=== PATIENT | female | born 1960 | race Caucasian/White ===

== ENCOUNTER → 2017-12-11 10:38 | Outpatient (CLI) | payer OTHER, SELFPAY ==
--- NOTE | 2017-12-11 10:43 | XR_ITS ---
XR ankle LT min 3V HISTORY: Pain and swelling ITS.REASON: PAIN AND EDEMA ORDERING PHYSICIAN: Laura Álvarez PATIENT AGE: 57 years FINDINGS: No fracture or dislocation. No lytic or blastic change. There is normal mineralization.. The joint spaces are well-preserved. No significant degenerative/arthritic changes. No erosive changes evident. IMPRESSION: Negative ankle, no acute finding
== END ==
PROVIDERS: PCP Emergency Medicine; Visit Provider Nurse Practitioner Family
DX: M25.572 Pain in left ankle and joints of left foot (principal); M25.472 Effusion, left ankle
CPT/HCPCS: 73610

== ENCOUNTER → 2018-01-16 10:51 | Outpatient (CLI) | payer OTHER, SELFPAY ==
[2018-01-16 11:34] LABS: Basophils % 1.1 % (0.1-2.0); Eosinophils # 0.1 K/mm3 (0.0-0.4); Eosinophils % 2.8 % (0.1-12.0); Hematocrit 37.8 % (37.0-47.0); Hemoglobin 10.9 g/dL (12.2-16.2); Lymphocytes # 1.4 K/mm3 (0.7-4.5); Lymphocytes % 38.4 K/mm3 (10-50); Mean Corpuscular HGB Conc 28.8 g/dL (31.8-35.4); Mean Corpuscular Hemoglobin 23.4 pg (27.0-31.2); Mean Corpuscular Volume 81.3 fl (81-99); Mean Platelet Volume 7.6 fl (7.4-10.4); Monocytes # 0.3 K/mm3 (0.1-1.0); Monocytes % 7.9 % (1.7-9.3); Neutrophils # 1.8 K/mm3 (1.8-7.8); Neutrophils % 49.8 % (37.0-80.0); Platelet Count 339 K/mm3 (142-424); Red Blood Count 4.65 M/mm3 (4.20-5.40); Red Cell Distribution Width 13.4 % (11.5-17.5); White Blood Count 3.6 K/mm3 (4.8-10.8)
[2018-01-16 12:37] LABS: Alanine Aminotransferase 28 U/L (12-78); Albumin Level 3.8 gm/dL (3.4-5.0); Albumin/Globulin Ratio 1.2 (1.1-1.8); Alkaline Phosphatase 99 U/L (46-116); Anion Gap 14.4 mEq/L (5-15); Aspartate Amino Transferase 23 U/L (15-37); Bilirubin,Total 0.4 mg/dL (0.2-1.0); Blood Urea Nitrogen 9 mg/dL (7-18); Calcium 9.1 mg/dL (8.5-10.1); Carbon Dioxide 28 mmol/L (21.0-32.0); Chloride 105 mmol/L (98-107); Estimated Glomerular Filt Rate 85 ml/min (>60); GFR (African American) 103 ML/MIN (>60); Globulin 3.1 gm/dl (1.3-3.2); Glucose 85 mg/dL (74-106); Potassium 4.4 mmoL/L (3.5-5.1); Sodium 143 mmol/L (136-145); Total Protein,Serum 6.9 gm/dL (6.4-8.2)
== END ==
PROVIDERS: Visit Provider Surgery
DX: Z01.818 Encounter for other preprocedural examination (principal); K83.8 Other specified diseases of biliary tract; K82.4 Cholesterolosis of gallbladder
CPT/HCPCS: 36415; 80053; 85025; 93005

== ENCOUNTER → 2018-02-22 09:13 | Outpatient (POV) | payer OTHER, SELFPAY | PROVIDERS: Visit Provider Dermatology | DX: Z00.00 Encounter for general adult medical examination without abnormal findings (principal) ==

== ENCOUNTER → 2018-04-04 10:03 | Outpatient (CLI) | payer OTHER, SELFPAY ==
[2018-04-04 10:41] LABS: Basophils % 0.6 % (0.1-2.0); Eosinophils # 0.1 K/mm3 (0.0-0.4); Eosinophils % 3.2 % (0.1-12.0); Hematocrit 37.1 % (37.0-47.0); Hemoglobin 11.1 g/dL (12.2-16.2); Lymphocytes # 1.5 K/mm3 (0.7-4.5); Lymphocytes % 34.7 K/mm3 (10-50); Mean Corpuscular Hemoglobin 23.6 pg (27.0-31.2); Mean Corpuscular Volume 78.7 fl (81-99); Mean Platelet Volume 8.2 fl (7.4-10.4); Monocytes # 0.3 K/mm3 (0.1-1.0); Monocytes % 7.9 % (1.7-9.3); Neutrophils # 2.3 K/mm3 (1.8-7.8); Neutrophils % 53.6 % (37.0-80.0); Platelet Count 335 K/mm3 (142-424); Red Blood Count 4.72 M/mm3 (4.20-5.40); Red Cell Distribution Width 16.6 % (11.5-17.5); White Blood Count 4.3 K/mm3 (4.8-10.8)
[2018-04-06 18:09] LABS: Gastrin 67 pg/mL (0-115)
== END ==
PROVIDERS: Visit Provider Surgery
DX: K21.9 Gastro-esophageal reflux disease without esophagitis (principal)
CPT/HCPCS: 36415; 82941; 85025

== ENCOUNTER → 2018-06-04 08:47 | Outpatient (POV) | payer OTHER, SELFPAY | PROVIDERS: Visit Provider Nurse Practitioner Acute Care | DX: Z00.00 Encounter for general adult medical examination without abnormal findings (principal) ==

== ENCOUNTER → 2019-05-22 08:16 | Outpatient (CLI) | payer SELFPAY ==
--- NOTE | 2019-05-22 08:17 | CT_ITS ---
PROCEDURE: CT HEART W CALCIUM SCORE Patient Age:59Y CLINICAL HISTORY: Cardiac risk factors family history. Cholesterol elevation COMPARISON: No exams were available for comparison TECHNIQUE: Limited axial images obtained through the heart for the purposes of calcium scoring. All CT scans at the facility use one or more dose reduction, viz: automated exposure control, ma/kV adjustment per patient size (including targeted exams where dose is matched to indication, i.e. head), or iterative reconstruction technique. FINDINGS: Total calcium score = 0 Very low cardiovascular disease CVD risk with such On visual inspection artery only note tiny atherosclerotic calcification at the aorta just above/superior the right coronary origin but the aorta root is normal caliber. Minimal calcified hilar nodes on right amador reflect minimal old granulomatous disease. IMPRESSION: Total calcium score = 0 Very low cardiovascular disease CVD risk with such Dictated by: Barber Rudolph MD 05/25/2019 23:30 Electronically signed by Barber Rudolph MD in [facility] 05/25/2019 23:30
== END ==
PROVIDERS: PCP Emergency Medicine; Visit Provider Internal Medicine Cardiovascular Disease
DX: Z13.6 Encounter for screening for cardiovascular disorders (principal); R07.9 Chest pain, unspecified
CPT/HCPCS: 75571

== ENCOUNTER → 2019-10-16 13:17 | Outpatient (CLI) | payer OTHER, SELFPAY ==
--- NOTE | 2019-10-16 13:21 | XR_ITS ---
PROCEDURE: XR HIP RT 2-3V W/PELVIS CLINICAL INDICATION: PIRFORMIS SYNDROME Right hip pain COMPARISON: No exams were available for comparison FINDINGS: There are minimal osteoarthritic changes of the right hip with slight decrease in the joint space and minimal spurring along the inferior aspect of the femoral head. No fracture or dislocation. No lytic or blastic change. IMPRESSION: Minimal osteoarthritic change of the right hip Dictated by: Patrick Carney MD 10/16/2019 15:52 Electronically signed by Patrick Carney MD in [facility] 10/16/2019 15:52
--- NOTE | 2019-10-16 13:21 | XR_ITS ---
PROCEDURE: XR LUMBAR SPINE MIN 4V CLINICAL INDICATION: PIRFORMIS SYNDROME Right-sided low back pain with sciatica, right hip pain COMPARISON: No exams were available for comparison FINDINGS: Normal alignment. No fracture or dislocation. There is mild degenerative disc disease at L3-L4 L4-5 and L5-S1. Mild facet arthritic changes are present at L4-5. The SI joints have an unremarkable appearance. IMPRESSION: Mild degenerative changes as described above Dictated by: Patrick Carney MD 10/16/2019 15:51 Electronically signed by Patrick Carney MD in [facility] 10/16/2019 15:51
== END ==
PROVIDERS: PCP Family Medicine; Visit Provider Physician Assistant
DX: G57.01 Lesion of sciatic nerve, right lower limb (principal)
CPT/HCPCS: 72110; 73502

== ENCOUNTER → 2020-01-24 10:30 | Outpatient (CLI) | payer OTHER, SELFPAY ==
[2020-01-24 14:12] LABS: Coronavirus 19 IgG Antibody Negative (Negative); Coronavirus 19 IgM Antibody Negative (Negative)
== END ==
PROVIDERS: Visit Provider Internal Medicine Adolescent Medicine
DX: Z03.818 Encounter for observation for suspected exposure to other biological agents ruled out (principal)
CPT/HCPCS: 36415; 86328

== ENCOUNTER → 2020-03-10 10:03 | Outpatient (POV) | payer OTHER, SELFPAY | PROVIDERS: PCP Family Medicine; Visit Provider Dermatology | DX: Z00.00 Encounter for general adult medical examination without abnormal findings (principal) ==

== ENCOUNTER → 2021-02-10 11:34 | Outpatient (CLI) | payer OTHER, SELFPAY ==
--- NOTE | 2021-02-10 11:42 | XR_ITS ---
PROCEDURE INFORMATION: Exam: XR Sacrum and Coccyx, 2 or More Views Exam date and time: 02/10/2021 11:42 AM Age: 61 years old Clinical indication: Pain in coccyx area; Additional info: Coccygeal pain TECHNIQUE: Imaging protocol: XR of the sacrum and coccyx, 2 or more views. COMPARISON: CR XR HIP RT 2-3V W/PELVIS 10/16/2019 1:28 PM FINDINGS: Bones/joints: Mild degenerative spurring of the bilateral SI joints. No SI joint erosion or ankylosis. Ldyu-xb-ojekbbbs pubic symphysis degenerative change. Bilateral coxa profunda incidentally noted. Mild lower lumbar facet osteoarthropathy. Soft tissues: Pelvic phleboliths. IMPRESSION: Mild degenerative change of the bilateral SI joints. No evidence of sacroiliitis.
== END ==
PROVIDERS: PCP Family Medicine; Visit Provider Physician Assistant
DX: M53.3 Sacrococcygeal disorders, not elsewhere classified (principal)
CPT/HCPCS: 72220

== ENCOUNTER → 2021-02-22 16:28 | Outpatient (CLI) | payer OTHER, SELFPAY ==
--- NOTE | 2021-02-22 16:29 | MR_ITS ---
PROCEDURE INFORMATION: Exam: MR Lumbar Spine Without Contrast Exam date and time: 02/22/2021 4:29 PM Age: 61 years old Clinical indication: Pain; Patient HX: Right sided sciatica, pressure in rectum on coccyx when sitting or bearing down. ; Additional info: Coccydynia TECHNIQUE: Imaging protocol: Multiplanar magnetic resonance images of the lumbar spine without intravenous contrast. COMPARISON: CR XR LUMBAR SPINE MIN 4V 10/16/2019 1:28 PM FINDINGS: Vertebrae: There is a normal count of 5 iyw-jra-dzsyuup lumbar type vertebrae, as seen on previous x-rays of 10/16/2019. There is mild levo scoliotic curvature of the upper lumbar spine, chronic compared with the prior exam. No acute fracture or listhesis. Marrow signal is within normal limits. No lytic lesion or metastatic pattern. Spinal cord: The conus tip is at the L1 level, and appears normal in signal and contour. No cord compression. L1-L2: No significant disc disease. No significant spinal canal stenosis. No neural foraminal stenosis. L2-L3: No significant disc disease. No significant spinal canal stenosis. No neural foraminal stenosis. L3-L4: Minimal anterior spondylosis, and slight lateral/intraforaminal disc bulging. No significant spinal canal stenosis. No neural foraminal stenosis. L4-L5: Minimal anterior spondylosis. Shallow posterolateral disc bulges greater toward the left. Mild bilateral facet arthritis and ligamentum flavum hypertrophy. No significant spinal canal stenosis. No neural foraminal stenosis. L5-S1: Moderate degenerative signal loss in the disc. There is small posterior disc protrusion slightly greater toward the right, with edematous annular tear visible in hernia; axial series 10, image 25, sagittal series 4 images 6-7. The protrusion minimally indents the thecal sac. Facets and ligamentum flavum are unremarkable. There is no significant spinal or foraminal stenosis, no nerve compression. Soft tissues: Subcutaneous soft tissue edema in the posterior lower back, a common nonspecific finding.There are no soft tissue masses or fluid collections. Kidneys and ureters: Prominent bilateral extrarenal pelves noted in the kidneys. No acute findings as visualized. Other findings: There is no aortic aneurysm. IMPRESSION: 1. No acute fracture, listhesis or metastatic pattern. 2. A shallow, edematous posterior disc protrusion at L5-S1 minimally indenting the thecal sac. There is no evidence of significant spinal stenosis or nerve compression. 3. Minimal degenerative changes at the other levels as above, with no significant spinal or foraminal stenoses, or nerve compression at the other levels. 4. Additional nonemergency and chronic findings as above.
--- NOTE | 2021-02-22 16:29 | MR_ITS ---
PROCEDURE INFORMATION: Exam: MR Pelvis Without Contrast, Sacral plexus Exam date and time: 02/22/2021 4:29 PM Age: 61 years old Clinical indication: Pain; Other: Coccyx; Patient HX: Pressure in rectum when sitting or bearing down, right sided sciatica; Additional info: Coccydynia TECHNIQUE: Imaging protocol: Magnetic resonance images of the pelvis without intravenous contrast. Exam focused on the sacral plexus. COMPARISON: XR SACRUM COCCYX MIN 2V 02/10/2021 12:02 PM FINDINGS: Nerves: Sacral plexus is unremarkable. Bones/joints: No acute findings. No acute fracture. No marrow edema. No lytic lesions. There is chronic appearing ankylosis of S5 and the 1st coccygeal segment. The 2nd through 4th coccygeal segments are fused into a single ossicle. There is fatty marrow intensity within the coccyx, no marrow edema, and no significant malalignment. Mild bilateral sacroiliitis, with minimal periarticular spurs as seen on previous x-rays. There is slight left sacral and iliac marrow edema abutting the left SI joint seen on STIR series 3, images 9 -10. Soft tissues: There are no soft tissue masses or organized fluid collections. There is slight soft tissue edema posterior/superficial to the distal sacrum and coccyx, see sagittal T2 series 4 images 18-19, but this is milder than the soft tissue edema seen in the posterior lower back overlying the lumbar spine and upper sacrum, and likely of no clinical significance. No pre-sacral or pre-coccygeal edema. IMPRESSION: 1. Unremarkable sacral plexus. 2. No sacral-coccygeal fracture, acute inflammation or malalignment. 3. Mild bilateral sacroiliitis, greater on the left. 4. Additional nonemergency and chronic findings as above.
== END ==
PROVIDERS: PCP Family Medicine; Visit Provider Physician Assistant
DX: M53.3 Sacrococcygeal disorders, not elsewhere classified (principal)
CPT/HCPCS: 72148; 72195; 76376

== ENCOUNTER → 2021-03-16 11:23 | Outpatient (POV) | payer OTHER, SELFPAY | PROVIDERS: Visit Provider Dermatology | DX: Z00.00 Encounter for general adult medical examination without abnormal findings (principal) ==

== ENCOUNTER 2021-03-31 15:00 | Outpatient (RCR) | payer OTHER, SELFPAY ==
--- NOTE | 2021-03-24 16:07 | HMH.PTOPEV ---
PT Outpatient Evaluation Rehab PT Outpatient Evaluation Start: 03/24/21 15:50 Freq: Status: Active Protocol: Document 03/24/21 15:51 PHILKELSI (Rec: 03/24/21 16:07 HILARY [id number]) Electronically Signed By Pasquale Bermudez, PT 03/24/21 15:51 Outpatient Therapy Subjective History Subjective History This is the initial Physical Therapy evaluation for Laya Coronel. Pt is a 61 y/o female referred to PT for c/o R side LBP, RLE paresthesia and R sacral/coccygeal pain. Pt reports pain began ~ 3 or more months ago w/ insidious onset. Pt reports she was seeing a chiropractor for several weeks with relief of back pain but no relief of sacral pain. Pt reports that if she sits her paresthesia increases and if she shifts she will get sharp tail bone pain Chief Complaint Pain Symptom Type Sharp,Burning,Numbness Symptoms Relieved By Rest/Positioning,OTC Meds Symptoms Aggravated By Sitting,Twisting Prior Functional Limitations None Current Functional Limitations Lifting,Housework,Desk Work/ Reading,Sleeping Symptom Description Intermittent Level of pain today (0-10) 0 Pain scale - at its best (0-10) 0 Pain scale - at its worst (0-10) 5 Lumbopelvic Eval Palapation tenderness right thoracic spinal tenderness No lumbar spinal tenderness No paraspinal tenderness No buttock tenderness Yes tenderness over symphysis pubis No Lumbar/Sacral Palpation Findings Tenderness Lumbar/Sacral Palpation Overall Comment TTP along R piriformis Mm and R SIJ ligaments Range of Motion Lumbar Spine ROM Reason Not Measured Within Functional Limits Special Tests Lumbar Spine Screen Positive Forward Bending Test- Standing Negative Right Forward Bending Test- Sitting Negative Right Sciatic Nerve Tension Test Negative Right Unilateral Straight Leg Raise (Lasegue) Negative Right Test Sacroiliac Joint Compression Test Positive Right Sacroiliac Joint Distraction Test Positive Right Outpatient Therapy Assessment Impairments Problems/Impairmments Palpation Tenderness,Impaired Sitting,Impaired Driving, Impaired Household Care, Impaired Recreational
== END 2021-03-31 15:05 | disposition home or self-care (01) ==
LOC: PT 15:00
PROVIDERS: PCP Family Medicine; Visit Provider Physician Assistant
DX: M53.3 Sacrococcygeal disorders, not elsewhere classified (principal)
CPT/HCPCS: 97010; 97110; 97140; 97163

== ENCOUNTER → 2021-04-09 12:55 | Outpatient (POV) | payer OTHER, SELFPAY ==
[2021-04-09 12:59] VITALS: BP 146/79; PULSE 70; RESP 20; O2SAT 97; BMI 26.6
--- NOTE | 2021-04-09 13:44 | HMH.PMCON ---
Assessment and Plan (1) Coccydynia Status: Acute Category: Medical Code(s): M53.3 - Sacrococcygeal disorders, not elsewhere classified (2) Degenerative joint disease (DJD) of lumbar spine Status: Acute Category: Medical Code(s): M47.816 - Spondylosis without myelopathy or radiculopathy, lumbar region - Assessment and plan all Dx Assessment and Plan for all problems:: Patient is to continue with her anti-inflammatories. We will seek approval and plan on a sacrococcygeal joint injection/caudal epidural steroid injection to see if this helps with her pain symptoms. HPI - Data of Consult Patient: new to practice Consult date: 04/09/21 Requesting Physician: Nikhil Fletcher MD Primary Care Provider: Norman De La Paz MD - Consult Narrative Reason for consult: Pain over the tailbone History of present illness: Ms. Coronel is a 61 year old female who presents today with some pain over the coccygeal region. She has had some previous manipulations by chiropractor initially this got better however after her last manipulation it did worsen her pain some. She has also had sciatica type symptoms. Most of her pain seems to be over her tailbone. She does have an MRI of the sacrum and coccyx as well as the lumbar spine which only shows some degenerative changes throughout the lumbar spine with posterior disc protrusion at L5-S1. She does seem to be suffering from coccydynia with minimal radiation of pain. CC: Nikhil Fletcher MD [facility] History I have reviewed the patient's past medical history: Yes Medical History: Reports:: Gastroesophageal Reflux Disease(GERD), Hyperlipidemia Denies:: Cancer, Diabetes Mellitus Type 1, Diabetes Mellitus Type 2, Internal Pacemaker, Lung Disease, MRSA, Seizures *Have you ever received a pneumonia vaccine?: No *Have you received a flu vaccine this season?: Yes Other Medical History: Denies: Blood Transfusion Reaction Other Surgeries: Yes: Cholecystectomy, Colonoscopy, Hysterectomy-Total, Hysterectomy-Partial, Tubal Ligation. No: Pacemaker Amputation: No Fractures: No - *Social History Smoking Status: Never smoker Alcohol Intake: never Substance Use Type: denies use *Occupational Status:: employed Housing: house Household Members: spouse *Travel in the last 8 weeks: None Family Hx:: Bleeding Disorder, Cancer, Coronary Artery Disease, Diabetes, Heart Attack, Hyperlipidemia, Hypertension, Stroke Review of Systems - Review of Systems Review of systems:: pertinent systems reviewed and negative unless documented below Meds Home Medications Medication Instructions Recorded Confirmed Type aspirin 81 mg tablet,delayed 81 mg PO DAILY 12/20/17 04/09/21 History release omeprazole 20 mg capsule,delayed 20 mg PO DAILY #90 cap 08/15/19 04/09/21 Rx release rosuvastatin 5 mg tablet 5 mg PO DAILY #90 tab 08/15/19 04/09/21 Rx Allergies Allergy/AdvReac Type Severity Reaction Status Date / Time Sulfa (Sulfonamide Allergy Mild Nausea Verified 04/09/21 13:10 Antibiotics) sulfamethoxazole Allergy Mild Nausea Verified 04/09/21 13:10 [From Bactrim] trimethoprim [From Bactrim] Allergy Mild Nausea Verified 04/09/21 13:10 Objective Vital signs: Pulse Resp BP Pulse Ox 70 20 146/79 H 97 04/09/21 12:59 04/09/21 12:59 04/09/21 12:59 04/09/21 12:59
== END ==
PROVIDERS: PCP Family Medicine; Visit Provider Anesthesiology
DX: M53.3 Sacrococcygeal disorders, not elsewhere classified (principal); M47.816 Spondylosis without myelopathy or radiculopathy, lumbar region
CPT/HCPCS: 99202; G0463

== ENCOUNTER 2021-04-23 10:36 | Day surgery (SDC) | payer OTHER, SELFPAY ==
[2021-04-23 10:42] VITALS: BP 150/76; PULSE 65; RESP 18; TEMP 36.9; O2SAT 99; BMI 27.9
[2021-04-23 10:57] VITALS: BP 149/81; PULSE 69; RESP 18; O2SAT 98
[2021-04-23 11:03] VITALS: BP 142/91; PULSE 69; RESP 18; O2SAT 100
--- NOTE | 2021-04-23 11:09 | HMH.PMPROC ---
- Procedure Date: 04/23/21 Time: 11:09 Anesthesiologist:: Nikhil Fletcher MD Complications:: None Pre-procedure Diagnosis:: Degenerative disc disease of lumbar spine with lumbar radiculopathy symptoms Post-procedure Diagnosis:: Same Indications for Procedure:: Patient is a pleasant 61-year-old white female who we have been treating for low back pain which is really concentrated over the coccyx. She does also have some sciatica type symptoms. She does have a posterior disc protrusion at L5-S1. Most of her pain is on the right side. Will do lumbar epidural steroid injections at L5-S1 to see if this helps with her pain symptoms. Procedure Details:: Informed consent was obtained and the risk and benefits of the procedure was explained to the patient. The patient was taken to the procedure room. The patient was placed prone on the procedure table. The patient was prepped and draped in sterile fashion. C-arm fluoroscopy was used to view the lumbar spine. Skin and subcutaneous tissues were anesthetized using lidocaine. I placed an 18-gauge epidural needle and advanced into the L5-S1 interspace using fluoroscopic guidance and [id number] to air. After confirmation of needle placement in the epidural space with dye I injected 2 mL of lidocaine 1.5% with Depo-Medrol 80 mg. Patient tolerated the procedure well with no complications. Plan and Disposition:: We will follow-up with her in 2 weeks. Will reevaluate her symptoms at that time.
[2021-04-23 11:15] VITALS: BP 160/72; PULSE 61; RESP 20; O2SAT 99
== END 2021-04-23 11:15 | disposition home or self-care (01) ==
LOC: SC.PAINP 10:36
PROVIDERS: PCP Family Medicine; Visit Provider Anesthesiology
DX: M51.16 Intervertebral disc disorders with radiculopathy, lumbar region (principal); I10 Essential (primary) hypertension; K21.9 Gastro-esophageal reflux disease without esophagitis
CPT/HCPCS: 62323; J1040; Q9966

== ENCOUNTER → 2021-05-14 09:28 | Outpatient (POV) | payer OTHER, SELFPAY ==
[2021-05-14 09:43] VITALS: BP 134/72; PULSE 69; RESP 20; TEMP 36.9; O2SAT 98; BMI 27.9
--- NOTE | 2021-05-14 10:04 | P.CONS_ITS ---
[facility] Pain Management SOAP Note Subjective:: This patient is a pleasant 61-year-old white female who we are treating for low back pain with pain over the coccyx. She is status post L5-S1 lumbar epidural steroid injection. She is 70 to 80% better after her last lumbar epidural steroid injection. She still has some residual pain. However she is much more functional and doing very well. Objective:: Alert and oriented x3 no acute distress. Patient does have an antalgic gait. Motor strength of lower extremities is 5/5. There is no gross sensory deficit. Assessment:: Degenerative disc disease of lumbar spine with lumbar radiculopathy symptoms with bulging disc at L5-S1 Plan:: Patient still has some residual pain. I do believe she would benefit from a repeat lumbar epidural steroid injection under fluoroscopy at L5-S1. We will seek approval and plan on this repeat injection when she gets back from vacation. [facility] History Medical History: Reports:: Gastroesophageal Reflux Disease(GERD), Hyperlipidemia Denies:: Cancer, Diabetes Mellitus Type 1, Diabetes Mellitus Type 2, Internal Pacemaker, Lung Disease, MRSA, Seizures *Have you ever received a pneumonia vaccine?: Yes *Have you received a flu vaccine this season?: Yes Other Medical History: Denies: Blood Transfusion Reaction Other Surgeries: Yes: Cholecystectomy, Colonoscopy, Hysterectomy-Total, Hysterectomy-Partial, Tubal Ligation. No: Pacemaker Amputation: No Fractures: No - *Social History Smoking Status: Never smoker Alcohol Intake: never Substance Use Type: denies use *Occupational Status:: employed Housing: house Household Members: spouse *Travel in the last 8 weeks: None Family Hx:: Bleeding Disorder, Cancer, Coronary Artery Disease, Diabetes, Heart Attack, Hyperlipidemia, Hypertension, Stroke
== END ==
PROVIDERS: PCP Family Medicine; Visit Provider Anesthesiology
DX: M51.16 Intervertebral disc disorders with radiculopathy, lumbar region (principal)
CPT/HCPCS: 99212; G0463

== ENCOUNTER 2021-06-04 11:44 | Day surgery (SDC) | payer OTHER, SELFPAY ==
[2021-06-04 11:52] VITALS: BP 136/59; PULSE 73; RESP 18; TEMP 36.8; O2SAT 98; BMI 27.4
[2021-06-04 12:06] VITALS: BP 137/90; PULSE 79; RESP 18; O2SAT 99
[2021-06-04 12:08] VITALS: BP 149/80; PULSE 75; RESP 18; O2SAT 99
--- NOTE | 2021-06-04 12:15 | HMH.PMPROC ---
- Procedure Date: 06/04/21 Time: 12:15 Anesthesiologist:: Nikhil Fletcher MD Complications:: None Pre-procedure Diagnosis:: Degenerative disc disease of lumbar spine with lumbar radiculopathy symptoms Post-procedure Diagnosis:: Same Indications for Procedure:: This patient is a pleasant 61-year-old white female who we are treating for low back pain with lumbar radiculopathy symptoms. She has increasing pain in her back rating down her legs. She did very well with her last lumbar epidural steroid injection she was 60 to 70% better. We will do repeat lumbar epidural steroid injection today. Procedure Details:: Informed consent was obtained and the risk and benefits of the procedure was explained to the patient. The patient was taken to the procedure room. The patient was placed prone on the procedure table. The patient was prepped and draped in sterile fashion. C-arm fluoroscopy was used to view the lumbar spine. Skin and subcutaneous tissues were anesthetized using lidocaine. I placed an 18-gauge epidural needle and advanced into the L4-L5 interspace using fluoroscopic guidance and [id number] to air. After confirmation of needle placement in the epidural space with dye I injected 2 mL of lidocaine 1.5% with Depo-Medrol 80 mg. Patient tolerated the procedure well with no complications. Plan and Disposition:: We will follow-up with her in 2 weeks. Will reevaluate symptoms at that time.
[2021-06-04 12:20] VITALS: BP 136/59; PULSE 73; RESP 20; O2SAT 98
== END 2021-06-04 12:20 | disposition home or self-care (01) ==
LOC: SC.PAINP 11:44
PROVIDERS: PCP Family Medicine; Visit Provider Anesthesiology
DX: M51.16 Intervertebral disc disorders with radiculopathy, lumbar region (principal); I10 Essential (primary) hypertension; K21.9 Gastro-esophageal reflux disease without esophagitis
CPT/HCPCS: 62323; J1040

== ENCOUNTER 2021-06-15 10:01 | Outpatient (CLI) | payer OTHER, SELFPAY ==
[2021-06-15] VITALS (8 sets, daily range): BP systolic 116–139; BP diastolic 58–77; PULSE 52–64; RESP 16–20; TEMP 36.6; O2SAT 95–99
== END 2021-06-15 13:36 | disposition home or self-care (01) ==
LOC: INF 10:02
PROVIDERS: PCP Family Medicine; Visit Provider Family Medicine
DX: U07.1 COVID-19 (principal); Z23 Encounter for immunization
CPT/HCPCS: 96365

== ENCOUNTER 2021-08-25 12:03 | Day surgery (SDC) | payer OTHER, SELFPAY ==
[2021-08-25 12:15] VITALS: BP 130/67; PULSE 68; RESP 20; O2SAT 99; BMI 27.4
--- NOTE | 2021-08-25 12:24 | HMH.PMPROC ---
- Procedure Date: 08/25/21 Time: 12:25 Anesthesiologist:: Nikhil Fletcher MD Complications:: None Pre-procedure Diagnosis:: Degenerative disc disease of lumbar spine with lumbar radiculopathy symptoms Post-procedure Diagnosis:: Same Indications for Procedure:: This patient is a pleasant 61-year-old white female who we are treating for low back pain with lumbar radiculopathy symptoms. She has done well with previous epidural steroid injections. We will do a repeat lumbar pleural steroid injection under fluoroscopy today as her pain is starting to return. Procedure Details:: Informed consent was obtained and the risk and benefits of the procedure was explained to the patient. The patient was taken to the procedure room. The patient was placed prone on the procedure table. The patient was prepped and draped in sterile fashion. C-arm fluoroscopy was used to view the lumbar spine. Skin and subcutaneous tissues were anesthetized using lidocaine. I placed an 18-gauge epidural needle and advanced into the L4-L5 interspace using fluoroscopic guidance and [id number] to air. After confirmation of needle placement in the epidural space with dye I injected 2 mL of lidocaine 1.5% with Depo-Medrol 80 mg. Patient tolerated the procedure well with no complications. Plan and Disposition:: We will follow-up with her in 2 weeks. Will reevaluate symptoms at that time.
[2021-08-25 12:27] VITALS: BP 146/84; PULSE 77; RESP 18; O2SAT 99
[2021-08-25 12:31] VITALS: PULSE 81; RESP 18; O2SAT 99
[2021-08-25 12:38] VITALS: BP 130/67; PULSE 68; RESP 20; O2SAT 99
== END 2021-08-25 12:39 | disposition home or self-care (01) ==
LOC: SC.PAINP 12:03
PROVIDERS: PCP Family Medicine; Visit Provider Anesthesiology
DX: M51.16 Intervertebral disc disorders with radiculopathy, lumbar region (principal); I10 Essential (primary) hypertension; K21.9 Gastro-esophageal reflux disease without esophagitis; E78.5 Hyperlipidemia, unspecified; Z88.1 Allergy status to other antibiotic agents; Z88.2 Allergy status to sulfonamides
CPT/HCPCS: 62323; J1040; Q9966

== ENCOUNTER 2024-09-10 13:01 | Outpatient (CLI) | payer MEDICARE, SELFPAY ==
--- NOTE | 2024-09-10 13:07 | XR_ITS ---
PROCEDURE INFORMATION: Exam: XR Thoracic Spine Exam date and time: 09/10/2024 1:13 PM Age: 64 years old Clinical indication: Pain in thoracic spine TECHNIQUE: Imaging protocol: Radiologic exam of the thoracic spine. Views: 3 views. COMPARISON: MR LUMBAR SPINE WO CON 02/22/2021 4:39 PM FINDINGS: Bones/joints: Alignment is normal. No visualized fracture. Disc space heights well-maintained. No osteophyte formation. No appreciable degenerative changes. Soft tissues: Unremarkable. IMPRESSION: Unremarkable thoracic spine.
== END 2024-09-10 23:59 | disposition home or self-care (01) ==
LOC: RAD 13:04
PROVIDERS: PCP Family Medicine; Visit Provider Family Medicine
DX: M54.6 Pain in thoracic spine (principal)
CPT/HCPCS: 72072

== ENCOUNTER 2024-12-23 09:23 | Outpatient (CLI) | payer MEDICARE, SELFPAY ==
--- OUTSIDE RECORDS SUMMARY | 2024-12-23 09:26 | XMS_ITS | Data Portability ---
Author Organization [facility] TreviñoS DREXEL CLOSED Address [address] [facility] [address] [place] [address] Assessment Encounter Date Assessment Date Assessment LastModified by Organization Details LastModified Time 02/10/2023 02/10/2023 f/up yearly [email or web address] Not available 12:11:35 02/12/2024 02/12/2024 F/up yearly [email or web address] Not available 12:32:58 Plan of Treatment Reminders Order Date Submit Date Provider Last Modified By Organization Details Last Modified Time Details Appointments DERMATOLO GY VISIT 2024 01:45P M PER QUILES MD Not available Not available Not available Lab None recorded. Referral None recorded. Procedures None recorded. Surgeries None recorded. Imaging None recorded. Medication Orders None recorded. Patient TargetsNo targets recorded. Patient Instructions Encounter Date Encounter Id Patient Instructions Last Modified By Organization Details Last Modified Time 02/10/2023 [id number] Education: We discussed the potential diagnostic options, options for further evaluation and treatments, and the risks and benefits of each. [email or web address] Not available 02/10/2023 07:01:24 02/12/2024 [id number] Education: We discussed the potential diagnostic options, options for further evaluation and treatments, and the risks and benefits of each. [email or web address] Not available 02/08/2024 15:09:44 Reason for Referral None Reported. Results Created Date Observation Date Name Description Value Unit Range Abnormal Flag Note LastModifiedBy Organization Detail LastModifiedTime 02/10/2002/09/2023 MAMMO , diagn ostic , tomos ynthe sis, bilat eral, w/ CAD [facility] [facility] [address] [facility] [place] [address] Maritza kim Name: LAYA kim : [id number] Age: 63 years Patishreya kim Orderi ng Provid er: RAMÓN TOLENTINO EXAM DATE: 2022 EXAM: MG AJ DIAG BARBIE MAMMOG ANJUM, right breast ultras ound INDICA TION: Nodule PROCED URE: Multis lice imagin g of both breast s was perfor med includ ing standa rd views using Hologi c Seleni a Dimens ions tomosy nthesi s equipm ent (3D mammog chinyere) . 2D images were create d from the 3D datase t using C-View softwa re. Images were evalua barak with the assist ance of Comput er Aided Detect ion (CAD) softwa re. Right breast ultras ound was perfor med. COMPAR MARTHA: This is compar ed with prior mammog glynn dated 2021, 2021, 2021, 2020, 2019. Prior ultras ound dated 2021, 2021 FINDIN GS: The breast s are hetero geneou sly dense. This reduce s sensit ivity of mammog chinyere. Scatte red areas of tissue asymme try. The patter n is stable . There is no defini te new mass or suspic ious calcif icatio n cluste r. An ultras ound was then perfor med. There is a hypoec hoic lesion at the 10:00 positi on of the right breast , 4 cm from the nipple . This measur es 10 x 9 x 4 mm. Favor fibroa denoma or compli cated cyst. Previo usly measur ed 8 x 8 x 4 mm. The differ ences in size likely relate to differ ences in measur ing techni que utiliz ed. IMPRES ELEAZAR: BI-RAD S catego ry 3, Probab ly Benign . Recomm end six-mo nth follow -up repeat right breast ultras ound only COMMEN T: Findin gs and recomm endati ons were discus sed with the patien t. Interp reted By: Ritesh Hyde MD Electr onical ly Signed By: Ritesh Hyde MD on 023 10:38 AM [email or web address] [facility] [address] [facility], [place], [address], 02/09/2023 10:49:31 02/10/20 23 02/09/2023 US, brekg t, unila teral [facility] [address] [place] [address] Maritza kim Name: LAYA kim : [id number] Age: 63 years Patishreya t Orderi ng Provid er: RAMÓN TOLENTINO EXAM DATE: 2022 EXAM: MG AJ DIAG BARBIE MAMMOG ANJUM, right breast ultras ound INDICA TION: Nodule PROCED URE: Multis lice imagin g of both breast s was perfor med includ ing standa rd views using Hologi c Seleni a Dimens ions tomosy nthesi s equipm ent (3D mammog chinyere) . 2D images were create d from the 3D datase t using C-View softwa re. Images were evalua barak with the assist ance of Comput er Aided Detect ion (CAD) softwa re. Right breast ultras ound was perfor med. COMPAR MARTHA: This is compar ed with prior mammog glynn dated 2021, 2021, 2021, 2020, 2019. Prior ultras ound dated 2021, 2021 FINDIN GS: The breast s are hetero geneou sly dense. This reduce s sensit ivity of mammog chinyere. Scatte red areas of tissue asymme try. The patter n is stable . There is no defini te new mass or suspic ious calcif icatio n cluste r. An ultras ound was then perfor med. There is a hypoec hoic lesion at the 10:00 positi on of the right breast , 4 cm from the nipple . This measur es 10 x 9 x 4 mm. Favor fibroa denoma or compli cated cyst. Previo usly measur ed 8 x 8 x 4 mm. The differ ences in size likely relate to differ ences in measur ing techni que utiliz ed. IMPRES ELEAZAR: BI-RAD S catego ry 3, Probab ly Benign . Recomm end six-mo nth follow -up repeat right breast ultras ound only COMMEN T: Findin gs and recomm endati ons were discus sed with the maritza kim. Interp reted By: Ritesh Hyde MD Electr onical ly Signed By: Ritesh Hyde MD on 023 10:38 AM [email or web address] [facility] [address] [place], [address], 02/09/2023 10:49:32 08/17/20 23 08/17/2023 US, edgar kim, fany teral [facility] [address] [place] [address] Maddieshreya kim Name: LAYA kim : [id number] Age: 63 years Maritza kim Orderi ng Provid er: RAMÓN TOLENTINO EXAM DATE: 2022 EXAM: US BREAST RT LIMITE D INDICA TION: 18 month follow -up right breast PROCED URE: Right breast ultras ound. COMPAR MARTHA: 023, 2021, 01/27/20 22 FINDIN GS: Follow -up ultras ound was perfor med of the right breast . At 10:00, 4 cm from the nipple there is a stable 10 x 8 x 4 mm hetero genous mass withou t international trade manager al lenin wick. This has been stable for 18 months , probab ly benign . IMPRES ELEAZAR: BI-RAD S catego ry 3, Probab ly Benign . Recomm end right breast ultras ound follow -up in 6 months . Patishreya t will be due for bilate ral diagno stic mammog anjum at that time. COMMEN T: Findin gs and recomm endati ons were discus sed with the patien t. Interp reted By: Kathi Sargent Electr onical ly Signed By: Kathi Sargent on 2022 10:09 AM [email or web address] [facility] [address] [place], [address], 08/17/2023 15:45:56 02/12/20 24 02/12/2024 MAMMO , diagn ostic , tomos ynthe sis, bilat eral, w/ CAD [facility] [facility] [address] [place] [address] Patishreya kim Name: LAYA kim : 958 Age: 64 years Patishreya t Orderi ng Provid er: LOGAN CAMACHO ET EXAM DATE: 2023 EXAM: MG AJ DIAG BARBIE MAMMOG ANJUM, right breast ultras ound INDICA TION: Nodule PROCED URE: Multis lice imagin g of both breast s was perfor med includ ing standa rd views using Hologi c Seleni a Dimens ions tomosy nthesi s equipm ent (3D mammog chinyere) . 2D images were create d from the 3D datase t using C-View softwa re. Images were evalua barak with the assist ance of Comput er Aided Detect ion (CAD) softwa re. Right breast ultras ound was perfor med. COMPAR MARTHA: This is compar ed with prior mammog glynn dated 023, 2021, 2021 . Previo us ultras ound dated 2022, 023, 2021, 2021 FINDIN GS: The breast s are hetero geneou sly dense. This reduce s sensit ivity of mammog chinyere. Vague nodula rity in the latera l portio n of the right breast is again noted and has not change d. Ultras ound of the right breast shows a hypoec hoic nodule at 10:00. This measur es 11 x 7 x 5 mm. 4 cm from nipple . IMPRES ELEAZAR: BI-RAD S catego ry 2, Benign . Lesion questi oned in the right breast is stable for greate r than 2 years. Recomm end follow -up yearly screen ing mammog chinyere on schedu le COMMEN T: Findin gs and recomm endati ons were discus sed with the patien t. Interp reted By: Ritesh Hyde MD Electr onical ly Signed By: Ritesh Hyde MD on 024 2:24 PM [email or web address] [facility] [address] [place] [address], [phone], 02/12/2024 14:37:43 02/12/20 24 02/12/2024 US, breas t, unila teral [facility] [address] [place] [address], [place] [address] Maritza kim Name: LAYA kim : [id number] Age: 64 years Patishreya t Orderi ng Provid er: LOGAN CAMACHO ET EXAM DATE: 2023 EXAM: MG AJ DIAG BARBIE MAMMOG ANJUM, right breast ultras ound INDICA TION: Nodule PROCED URE: Multis lice imagin g of both breast s was perfor med includ ing standa rd views using Hologi c Seleni a Dimens ions tomosy nthesi s equipm ent (3D mammog chinyere) . 2D images were create d from the 3D datase t using C-View softwa re. Images were evalua barak with the assist ance of Comput er Aided Detect ion (CAD) softwa re. Right breast ultras ound was perfor med. COMPAR MARTHA: This is compar ed with prior mammog glynn dated 023, 2021, 2021 . Previo us ultras ound dated 2022, 023, 2021, 2021 FINDIN GS: The breast s are hetero geneou sly dense. This reduce s sensit ivity of mammog chinyere. Vague nodula rity in the latera l portio n of the right breast is again noted and has not change d. Ultras ound of the right breast shows a hypoec hoic nodule at 10:00. This measur es 11 x 7 x 5 mm. 4 cm from nipple . IMPRES ELEAZAR: BI-RAD S catego ry 2, Benign . Lesion questi oned in the right breast is stable for greate r than 2 years. Recomm end follow -up yearly screen ing mammog chinyere on schedu le COMMEN T: Findin gs and recomm endati ons were discus sed with the patishreya renee . Interp reted By: Ritesh Hyde MD Electr onical ly Signed By: Ritesh Hyde MD on 024 2:[address] [place] [address], [phone], 02/12/2024 14:37:44 Result Notes None recorded. Procedures Surgical History Date Name Laterality Status Provider Name and Address Organization Details Recorded Time 02/12/20 Destruction Premalignant Lesion(s) completed [facility], [place] 02/12/2024 12:31:34 02/12/20 Destruction BN Lesions completed [facility] [place] 02/12/2024 12:32:07 02/11/20 Destruction Premalignant Lesion(s) completed Karly Hightower [facility] 02/10/2023 12:20:03 Imaging Results Imaging Date Name Status LastModified by Organiz ation Details LastModified Time 02/09/2023 MAMMO, diagnostic, tomosynthesis, bilateral, w/ CAD completed [email or web address] [address], [address], 02/09/2023 10:49:31 02/09/2023 US, breast, unilateral completed [facility] [address] [place], [address], 02/09/2023 10:49:32 08/17/2023 US, breast, unilateral completed [email or web address] [address], [address], 08/17/2023 15:45:56 02/12/2024 MAMMO, diagnostic, tomosynthesis, bilateral, w/ CAD completed [email or web address] [facility] [address] [place] [address], [phone], 02/12/2024 14:37:43 02/12/2024 US, breast, unilateral completed [email or web address] [facility] [address] [place], [address], 02/12/2024 14:37:44 Procedure Notes None recorded. Medical Equipment None Reported. Allergies Allergen ID Allergen Name Allergen Category Reaction Reaction Severity Criticality Documentation Date Start Date Code Code System Note Provider Name and Address Organization Details Recorded Time 444667 Bactrim medicatio n hives Not available Not available 07/15/20162014 50788 9 RxNorm React ion: HIVES ; Comme nt: Creat ed By: Vianey Toscano eated Date: 07/01 11:19 :16 AM; Not Available [facility] 03:27:51 Medications Name Sig Start Date Stop Date Status Note LastModified by Organization Details LastModified Time triamcino lone acetonide 0.1 % topical cream As Directed 02/10 completed Instruct ions: Apply to the affected area ON LEG twice a day for 2 weeks PRN FLARES;F requency : as direct.; Medicati on Descript ion: triamcin olone topical; Dosage:a s directed ; Route:to pical; refills: 1; Quantity :15 cream Not Available Not Available Not Available aspirin 81 mg tablet Daily active PT NO LONGER TAKING Not Available Not Available Not Available rosuvasta tin 10 mg tablet Take 1 tablet every day by oral route. active Not Available Not Available No t Available Crestor 5 mg tablet 02/10 completed Medicati on Descript ion: rosuvast atin; Route:or al; refills: 0; Quantity :30 tablet Not Available Not Available Not Available omeprazol e active Medicati on Descript ion: omeprazo le; refills: 0 Not Available Not Available Not Available Vitals None Recorded Social History None recorded. Functional Status None recorded. Mental Status None recorded. Family History Nothing Reported. Medical History No medical history recorded. Gynecological HistoryNo gynecological history recorded. Obstetrics History GPAL:G 0 P 0 0 0 0 Past Encounters Encounter ID Performer Location Encounter Start Date Encounter Closed Date Diagnosis/Indication Diagnosis SNOMED-CT Code Diagnosis ICD10 Code Diagnosis Note [id number] [facility] [address] 11/22/2016 00:05:41 11/22/2016 00:05:41 [id number] PER QUILES MD DERMATOLO GY [facility] [address] [place] [address] 02/10/2023 11:32:06 02/10/2023 12:29:25 Lentiginosis 585204560 L81.4 reassuranc e Recommende d Equate Ultra Sunscreen 30+ and sun protecting hats/cloth ing Raised madi orrheic keratosis 7798835772 11213 L82.1 reassuranc e Hemangioma 643390198 D18 .00 reassuranc e Actinic keratosis 342845 [address] x 3 Post-infla mmatory hyperpigmentation 979677684 L81.0 [id number] PER QUILES MD DERMATMANDO GY [facility] [address] [place] [address] 02/12/2024 11:36:11 02/12/2024 12:38:41 Lentiginosis 150950505 L81.4 Reassuranc eRecommend ed Equate Ultra Sunscreen 30+ and sun protecting hats/cloth ing Raised madi orrheic keratosis 5846832921 05245 L82.1 Reassuranc e Hemangioma 086816447 D18 .00 Reassuranc e Actinic keratosis 626741 [address] x 3 Inflamed s eborrheic keratosis 148684156 L82.0 LN x 15 Health Concerns Section Related Observation LastModified by Organization Detai ls LastModified Time None Recorded Concern Status LastModified by Organization Details LastModified Time None Recorded Advance Directives Directive None Recorded Payers Encounter Date Sequence Insurance Name Policy Number Policy Barry Covered Member ID Barry Member ID Guarantor Name 02/10/2023 1 [place] Laya Coronel [id number] Laya Coronel 02/10/2023 2 [employer] HE[employer] OPTIONS (MEDICARE SUPPLEMENT) Laya Coronel [id number] Laya Coronel 02/12/2024 1 MEDICARE-[place] (MEDICARE) Laya Coronel [id number] Laya Mitchell Homer 02/12/2024 2 [employer] OPTIONS (MEDICARE SUPPLEMENT) Laya Talamantesd [id number] Laya Shoemakernard Notes Date Note Type Note Provider Name and Address Organization Details Recorded Time 02/10/2023 text/html New Patient - ann marie barker seen 2014 LOCATION: back/ faceDURATION: x yearsSYMPTOMS: roughTREATMENTS: none no issues with bleeding, scarring, or healing Denies any other new, changing, or bleeding lesions, or other rashes, feels well , good mood and has no family history of melanoma. PER QUILES MD [address] [place] [address], [phone], [facility] 02/10/2023 12:43:59 02/12/2024 text/html Established Patient LOCATION: FaceDURATION: Few monthsSYMPTOMS: ItchingTREATMENTS: None Pt would like annual FSE today. Check left axilla, back. Pt states she would like SKs on back treated today. No issues with bleeding, scarring or healing Denies any other new, changing, or bleeding lesions, or other rashes, feels well , good mood and has no family history of melanoma. PER QUILES MD [address] [place] [address], [phone], [facility] 02/12/2024 12:43:44 OBGyn Episode No OBEpisode recorded.
--- OUTSIDE RECORDS SUMMARY | 2024-12-23 09:26 | XMS_ITS ---
Author Organization Unknown TREATMENT PLAN [facility] Start Date Provider Encounter for Check-up [id number] [facility]
--- NOTE | 2024-12-23 09:27 | XR_ITS ---
FINAL REPORT TECHNIQUE: Bone densitometry calculations of the lumbar spine and left hip were obtained. CLINICAL HISTORY: SCREENING COMPARISON: None FINDINGS: Using L1-4, the bone mineral density of the spine is 0.917 g/cm2, corresponding to T-score of -1.2 and a Z score of 0.7. This is within the range of osteopenia. Using the left hip, the bone mineral density of the femoral neck is 0.916 g/cm2, corresponding to a T-score of -0.2 and a Z-score of 1.1. This is within the range of normal. Using the right hip, the bone mineral density of the femoral neck is 0.920 g/cm?, corresponding to a T-score of -0.2 and a Z-score of 1.1. This is within the range of normal. NOTE: T-score: Standard deviation compared with peak bone mass of young adult mean. *Following the recommendations of the International Society of Bone densitometry, classification of hip BMD is based on the lower of two T-scores; total hip or femoral neck. IMPRESSION: 1. Bone mineral density of the lumbar spine within the range of osteopenia. 2. Bone mineral density of the bilateral femoral necks within the range of normal. Reviewed, Interpreted and Dictated by Kristen Brody MD Transcribed by Julisa Chatman Authenticated and . [facility]
== END 2024-12-23 23:59 | disposition home or self-care (01) ==
LOC: RAD 09:25
PROVIDERS: PCP Family Medicine; Visit Provider Family Medicine
DX: M85.88 Other specified disorders of bone density and structure, other site (principal); Z13.820 Encounter for screening for osteoporosis
CPT/HCPCS: 77080

== ENCOUNTER 2024-12-30 09:44 | Outpatient (CLI) | payer MEDICARE, SELFPAY ==
--- OUTSIDE RECORDS SUMMARY | 2024-12-30 09:47 | XMS_ITS | Data Portability ---
Author Organization [place] [facility], [facility] Address [address] [place] [address] Assessment Encounter Date Assessment Date Assessment LastModified by Organization Details LastModified Time 12/28/2021 12/28/2021 This patient is well-known to me being previously treated in [place] for right-sided sacroiliitis. Her last right SI joint injection was back in August. She was 80 to 90% better up until approximately a month ago. Pain is now started to return. She does have a positive Gabriel's test on the right side. She has positive Darren test on the right side. She has positive SI joint compression test on the right side. She has a positive distraction test on the right side. We did do a right SI joint injection under fluoroscopy today. We will follow-up with her in 1 month we will reevaluate her symptoms at that time. abux Not available 12/28/2021 09:28:30 07/26/2022 07/26/2022 This patient did well with bilateral SI joint injections under fluoroscopy today. She does note some pain in numbness in her toes of her left foot. This may be coming from her SI joints or it may be coming from her back. We will follow-up with her with a phone call after these injections. She is self-pay today. She will not have insurance until December. If she does not get any relief in her left foot then we may proceed to a lumbar epidural steroid injection under fluoroscopy. abux Not available 07/26/2022 10:20:37 03/31/2023 03/31/2023 This patient had bilateral SI joint injections 5 months ago. She was 80% better for 4 months. Her pain is now starting to return. We did bilateral SI joint injections once again today. This allows her to be functional and decrease his pain significantly for at least 3 to 4 months. She continues to take Celebrex as needed. Pain score is a 5 out of 10 today. She is tender over both SI joints. She does have a positive Gabriel's test bilaterally. She has positive [place]'s test bilaterally. She has positive SI joint compression test bilaterally. She has positive distraction test bilaterally. We will follow-up with her in 2 months. We will reevaluate her symptoms at that time. abux Not available 04/01/2023 00:27:17 Plan of Treatment Reminders Order Date Submit Date Provider Last Modified By Organization Details Last Modified Time Details Appointments None record ed. Lab None record ed. Referral None record ed. Procedures None record ed. Surgeries None record ed. Imaging None record ed. Medication Orders None record ed. Patient TargetsNo targets recorded. Patient InstructionsNo instructions recorded. Reason for Referral None Reported. Problems Name Problem SNOMED Code Status Onset Date Resolution Date Notes Provider Name and Address Organization Details Recorded Time Inflammation of sacroiliac joint 13180938 Active 2021 Olivia armendariz, [place] - [facility] 2 09:08:45 Problem Notes None recorded. Procedures Surgical History Date Name Laterality Status Provider Name and Address Organization Details Recorded Time 3 Therapeutic SI Joint Injection Under Fluoroscopy completed Nikhil Fletcher MD [address], [address], [place] [facility] 04/01/2023 00:26:14 2 SI Joint Steroid Injection Under Fluoroscopy completed Nikhil Fletcher MD [address], [address], [place] [facility] 07/26/2022 10:19:52 2 SI Joint Steroid Injection Under Fluoroscopy completed Nikhil Fletcher MD [address], [address], [place] [facility] 12/28/2021 09:27:43 Imaging Results None recorded. Procedure Notes None recorded. Medical Equipment None Reported. Medications Name Sig Start Date Stop Date Status Note LastModified by Organization Details LastModified Time cetirizine 5 mg-pseudoep hedrine ER 120 mg tablet,exte nded release,12h r TAKE 1 TABLET BY MOUTH ONCE DAILY active Not Available Not Available No t Available amoxicillin 500 mg capsule TAKE 2 CAPSULES BY MOUTH 2 TIMES A DAY. 03/27 completed Not Available Not Available Not Available promethazin e-DM 6.25 mg-15 mg/5 mL oral syrup take 10 ML BY MOUTH EVERY 6 HOURS NEEDED MAY CAUSE DROWSINES S 12/28 completed Not Available Not Available Not Available cetirizine 10 mg tablet TAKE 1 TABLET BY MOUTH EVERY DAY active Not Available Not Available No t Available azithromyci n 250 mg tablet TAKE 2 TABLETS BY MOUTH ON DAY 1, AND THEN TAKE 1 TABLET BY MOUTH ONCE A DAY ON DAY 2 THROUGH DAY 5 active Not Available Not Available No t Available fluconazole 150 mg tablet TAKE ONE TABLET BY MOUTH NOW A ONE-TIME DOSE active Not Available Not Available No t Available benzonatate 200 mg capsule TAKE ONE CAPSULE BY MOUTH THREE TIMES DAILY NEEDED -SWALLOW WHOLE. DO NOT CRUSH OR CHEW- 03/27 completed Not Available Not Available Not Available betamethaso ne, augmented 0.05 % topical cream APPLY 1 APPLICATI ON TOPICALLY TWICE A DAY 03/27 completed Not Available Not Available Not Available fexofenadin e 180 mg tablet TAKE ONE TABLET BY MOUTH EVERY DAY active Not Available Not Available No t Available hydrocortis one 2.5 % topical cream with perineal applicator APPLY RECTALLY TWICE DAILY DIRECTED active Not Available Not Available No t Available benzonatate 100 mg capsule TAKE 1 CAPSULE BY MOUTH THREE TIMES DAILY active Not Available Not Available No t Available omeprazole 20 mg capsule,del ayed release TAKE 1 CAPSULE BY MOUTH ONCE DAILY active Not Available Not Available No t Available methylpredn isolone 4 mg tablets in a dose pack TAKE ACCORDING TO PACKAGE INSTRUCTI ONS --TAKE WITH FOOD-- -- FINISH ALL MEDICINE -- 12/28 completed Not Available Not Available Not Available celecoxib 100 mg capsule TAKE 1 CAPSULE BY MOUTH 2 TIMES A DAY NEEDED FOR MILD PAIN. active Not Available Not Available No t Available cefdinir 300 mg capsule TAKE ONE CAPSULE BY MOUTH EVERY TWELVE HOURS -- FINISH ALL MEDICINE -- 12/28 completed Not Available Not Available Not Available fluticasone propionate 50 mcg/actuati on nasal spray,suspe nsion USE 1 TO 2 SPRAY(S) IN EACH NOSTRIL ONCE DAILY NEEDED active Not Available Not Available No t Available Alavert D-12 Allergy-Sin us 5 mg-120 mg tablet,exte nded release TAKE ONE TABLET BY MOUTH EVERY TWELVE HOURS active Not Available Not Available No t Available rosuvastati n 5 mg tablet TAKE 1 TABLET BY MOUTH EVERY DAY active Not Available Not Available No t Available rosuvastati n 10 mg tablet TAKE 1 TABLET BY MOUTH EVERY DAY active Not Available Not Available No t Available Duexis 800 mg-26.6 mg tablet TAKE ONE TABLET BY MOUTH THREE TIMES DAILY active Not Available Not Available No t Available Vitals Date Recorded Body height Body mass index (BMI) Body weight Heart rate Respiratory rate Heart rate Oxygen saturation Oxygen saturation in Arterial blood by Pulse oximetry Systolic blood pressure Diastolic blood pressure Provider Name and Address Organization Details Last Updated DateTime 3 165.1 cm 30 kg/m2 44142.6 3 g 72 /min 18 /min 72 /min 97 % 97 % 153 mm[Hg] 93 mm[Hg] Cherelle Ferraro [place] - [facility] 3 10:57:40 Social History Question Answer Notes LastModified by [email or web address] Details LastModified Time Tobacco Smoking Status Never Smoker JOSEPH MEDINA marcello, [place] - [facility] 03/27/2023 15:39:23 In The 14 Days Before Symptom Onset, Have You Had Close Contact With A Laboratory-confirm ed COVID-19 While That Case Was Ill? No [email or web address] Information n ot available 03/27/2023 In The 14 Days Before Symptom Onset, Have You Had Close Contact With A Person Who Is Under Investigation For COVID-19 While That Person Was Ill? No [email or web address] Information not available 03/27/2023 Have You Been To An Area Known To Be High Risk For COVID-19? No Information not available 03/27/2023 Sex: Unknown Functional Status Question Answer Note LastModified by [email or web address] Details LastModified Time Do you use any illicit or recreational drugs? No [email or web address] Information not available 03/27/2023 Do you or have you ever used any other forms of tobacco or nicotine? No [email or web address] Information not available 03/27/2023 What is your level of alcohol consumption? None [email or web address] Information not available 03/27/2023 Mental Status None recorded. Family History Nothing Reported. Medical History No medical history recorded. Gynecological HistoryNo gynecological history recorded. Obstetrics History GPAL:G 0 P 0 0 0 0 Past Encounters Encounter ID Performer Location Encounter Start Date Encounter Closed Date Diagnosis/Indication Diagnosis SNOMED-CT Code Diagnosis ICD10 Code Diagnosis Note [id number] Nikhil Fletcher MD [facility] [address] [facility] [address] [place] [address] 12/28/2021 08:09:40 12/28/2021 09:04:12 Inflammation of sacroiliac joint 72454414 M46.1 [id number] Nikhil Fletcher MD [facility] [address] [facility] [address] [place] [address] 07/26/2022 08:10:29 07/26/2022 09:29:34 Inflammation of sacroiliac joint 11207386 M46.1 [id number] Nikhil Fletcher MD [facility] [address] [place] [address] [address] [place] [address] 03/31/2023 10:07:11 03/31/2023 12:10:21 Inflammation of sacroiliac joint 44475122 M46.1 Health Concerns Section Related Observation LastModified by Organization Detai ls LastModified Time None Recorded Concern Status LastModified by Organization Details LastModified Time None Recorded Advance Directives Directive None Recorded Payers Encounter Date Sequence Insurance Name Policy Number Policy Barry Covered Member ID Barry Member ID Guarantor Name 12/28/2021 1 [place] ([place]) [id number] Laya Coronel [id number] Laya Coronel 07/26/2022 1 *SELF PAY* Am jj Coronel 03/31/2023 2 [facility] Laya Coronel [id number] Laya Coronel 03/31/2023 1 [place] Laya Coronel [id number] Laya Coronel Notes Date Note Type Note Provider Name and Address Organization Details Recorded Time 03/31/2023 text/html Patient presents for an injection of Right SI INJPt pain score is 5/10Pt c/o numbness/burning feeling in her toes pt thinks she might have a pinched nervePt has pain in her hips that makes it hard to sleepPt does not want surgery or medication, pt says the only medication she takes is celebrex when she really needs it Nikhil Fletcher MD [address] [address], [place], [address], [facility] 04/01/2023 00:29:51 OBGyn Episode No OBEpisode recorded.
--- NOTE | 2024-12-30 09:50 | US_ITS ---
FINAL REPORT CLINICAL HISTORY: PALP AREA AT EPIGASTRIC REGION COMPARISON: None FINDINGS: ULTRASOUND ABDOMINAL WALL: Ultrasound examination of the area of interest, designated by the patient, in the epigastric region was performed. There is a slightly hyperechoic subcutaneous region, palpable, measuring 1.3 x 1.2 cm in size, that may represent a lipoma. There is a significantly larger and deeper mass, more inhomogeneous, measuring 6 x 2.1 cm in size. IMPRESSION: 2 palpable nodules in the anterior abdominal wall as described above. The smaller mass is homogeneous, measuring 1.3 x 1.2 cm in size, likely a lipoma. The second mass is significantly larger and deeper, and somewhat more inhomogeneous, 6 x 2.1 cm in size. This mass may also represent a lipoma. Correlation with either CT or MR might be helpful as clinically indicated. Reviewed, Interpreted and Dictated by Mikhail De La Vega MD Transcribed by Julisa Chatman Authenticated and [facility]
== END 2024-12-30 23:59 | disposition home or self-care (01) ==
LOC: RAD 09:45
PROVIDERS: PCP Family Medicine; Visit Provider Family Medicine
DX: R19.06 Epigastric swelling, mass or lump (principal)
CPT/HCPCS: 76705

== ENCOUNTER 2025-01-21 07:50 | Outpatient (CLI) | payer MEDICARE, SELFPAY ==
--- NOTE | 2025-01-21 07:53 | CT_ITS ---
FINAL REPORT TECHNIQUE: Thin section axial images are obtained through the abdomen and pelvis after intravenous contrast. Reconstruction images were obtained from the axial data. Exam was performed using dose reduction techniques. CLINICAL HISTORY: ABNORMAL US COMPARISON: Ultrasound 12/30/2024 FINDINGS: LUNG BASES: Lung bases are clear. Heart size is normal. LIVER: Homogeneous. No focal lesion. GALLBLADDER/BILIARY SYSTEM: Absent. No biliary ductal dilatation. SPLEEN: Unremarkable. PANCREAS: Unremarkable. ADRENALS: Unremarkable. KIDNEYS/URETERS/BLADDER: No hydronephrosis, renal mass, or renal stone. Unremarkable urinary bladder. GI TRACT: No small bowel obstruction. Appendix is normal. Diverticulosis is more pronounced distally. Mild wall thickening of the mid sigmoid colon and some mild surrounding inflammatory change, diverticulitis not excluded. No evidence of abscess. PELVIC ORGANS: Uterus absent. LYMPH NODES/RETROPERITONEUM/MESENTERY: No lymphadenopathy. No abdominal aortic aneurysm. ABDOMINAL WALL: Fat-containing hernia in the midline upper abdominal wall. Fat within the hernia likely accounts for larger abnormality seen on recent ultrasound. No discrete abnormality on CT to correlate with smaller abnormality seen on ultrasound. Separate very small fat-containing umbilical hernia. FREE FLUID: No ascites. BONES: No acute osseous abnormality. IMPRESSION: Fat-containing supraumbilical hernia likely accounting for 1 abnormality seen on recent ultrasound. Possible mild sigmoid diverticulitis. Reviewed, Interpreted and Dictated by Kristen Brody MD Transcribed by Laya Browning Authenticated and [facility]
--- OUTSIDE RECORDS SUMMARY | 2025-01-21 07:53 | XMS_ITS | Data Portability ---
Author Organization [facility] [place] [facility] Address [address] [facility] [place] [address] Assessment Encounter Date Assessment Date Assessment LastModified by Organization Details LastModified Time 02/10/2023 02/10/2023 f/up yearly sonia Not available 12:11:35 02/12/2024 02/12/2024 F/up yearly [email or web address] Not available 12:32:58 Plan of Treatment Reminders Order Date Submit Date Provider Last Modified By Organization Details Last Modified Time Details Appointments DERMATOL OGY VISIT 2024 01:45P M PER QUILES MD Not available Not available Not available MAMMOGRA M 2024 05:45P M MAMMOGRAM Not available Not available Not available Lab None recorded . Referral None recorded . Procedures None recorded . Surgeries None recorded . Imaging None recorded . Medication Orders None recorded . Patient TargetsNo targets recorded. Patient Instructions Encounter Date Encounter Id Patient Instructions Last Modified By Organization Details Last Modified Time 02/10/2023 [id number] Education: We discussed the potential diagnostic options, options for further evaluation and treatments, and the risks and benefits of each. sonia Not available 02/10/2023 07:01:24 02/12/2024 [id number] Education: We discussed the potential diagnostic options, options for further evaluation and treatments, and the risks and benefits of each. [email or web address] Not available 02/08/2024 15:09:44 Reason for Referral None Reported. Results Created Date Observation Date Name Description Value Unit Range Abnormal Flag Note LastModifiedBy Organization Detail LastModifiedTime 02/10/202023 MAMMO , diagn ostic , tomos ynthe sis, bilat eral, w/ CAD [facility] [address] [place] [address] Maritza kim Name: LAYA kim : [id number] [...] Ritesh Hyde MD on 023 10:38 AM [facility] Radiology [facility] [address] [place] [address], [place], [address], 02/09/2023 10:49:31 02/10/20 23 02/09/2023 [place], brekg t, unila teral [place] [address] [place] [address] Maritza kim Name: LAYA kim : [id number] [...] ons were discus sed with the maritza t. Interp reted By: Ritesh Hyde MD Electr onical ly Signed By: Ritesh Hyde MD on 023 10:38 AM [email or web address] [facility]iology [facility] [address] [place], [address], 02/09/2023 10:49:32 08/17/20 23 08/17/2023 [place], edgar t, unila teral [address] [place] [address] Maritza kim Name: LAYA kim : [id number] [...] 4 mm hetero genous mass withou t general internal medicine physician al lenin wick. This has been stable for 18 months , probab ly benign . IMPRES ELEAZAR: BI-RAD S catego ry 3, Probab ly Benign . Recomm end right breast ultras ound follow -up in 6 months . Maritza kim will be due for bilate ral diagno stic mammog anjum at that time. COMMEN T: Findin gs and recomm endati ons were discus sed with the patien t. Interp reted By: Kathi Sargent Electr onical ly Signed By: Kathi Sargent on 2022 10:09 AM [email or web address] [facility]iology [facility] [address] [place] [address], [place], [address], 08/17/2023 15:45:56 02/12/20 24 02/12/2024 MAMMO , diagn ostic , tomos ynthe sis, bilat eral, w/ CAD [place] [address] [place] [facility] [place] [address] Maritza kim Name: LAAY kim : [id number] Age: 64 years Patishreya kim Orderi ng Provid er: LOGAN CAMACHO ET [...] ons were discus sed with the patishreya kim. Interp reted By: Ritesh Hyde MD Electr onical ly Signed By: Ritesh Hyde MD on 024 2:[email or web address] Radiology [facility] [address] [place] [address], [address], 02/12/2024 14:37:43 02/12/20 24 02/12/2024 [place], breas t, unila teral [facility] [address] [place] [address] Patishreya t Name: LAYA kim : [id number] Age: 64 years Patishreya kim Orderi ng Provid er: LOGAN CAMACHO ET [...] ons were discus sed with the maritza renee . Interp reted By: Ritesh Hyde MD Electr onical ly Signed By: Ritesh Hyde MD on 024 2:24 PM [email or web address] [facility]iology [facility] [address] [place], [address], 02/12/2024 14:37:44 Result Notes None recorded. Procedures Surgical History Date Name Laterality Status Provider Name and Address Organization Details Recorded Time 02/12/20 Destruction Premalignant Lesion(s) completed [facility] 02/12/2024 12:31:34 02/12/20 Destruction BN Lesions completed [facility] 02/12/2024 12:32:07 02/11/20 Destruction Premalignant Lesion(s) completed Karly Hightower [facility] 02/10/2023 12:20:03 Imaging Results None recorded. Procedure Notes None recorded. Medical Equipment None Reported. Allergies Allergen ID Allergen Name Allergen Category Reaction Reaction Severity Criticality Documentation Date Start Date Code Code System Note Provider Name and Address Organization Details Recorded Time 805018 Bactrim medicatio n hives Not available Not available 07/15/20162014 84351 9 RxNorm React ion: HIVES ; Comme nt: Creat ed By: Vianey Toscano eated Date: 07/01 11:19 :16 AM; Not Available [facility] 6 03:27:51 Medications Name Sig Start Date [...] SNOMED-CT Code Diagnosis ICD10 Code Diagnosis Note [id number] QM_IMPORTS QM-LAB IMPORTS [place] [id number] 11/22/2016 00:05:41 11/22/2016 00:05:41 [id number] MD LICHA LLOYD G[facility] [address] [place] [address] 02/10/2023 11:32:06 02/10/2023 12:29:25 Lentiginosis 579241337 L81.4 reassuranc e Recommende d Equate Ultra Sunscreen 30+ and sun protecting hats/cloth ing Raised madi orrheic keratosis 4579516628 49338 L82.1 reassuranc e Hemangioma 001506007 D18 .00 reassuranc e Actinic keratosis 87[address] x 3 Post-infla mmatory hyperpigmentation 447287683 L81.0 [id number] MD LICHA [facility] [address] [place] [address] 02/12/2024 11:36:11 02/12/2024 12:38:41 Lentiginosis 770219187 L81.4 Reassuranc eRecommend ed Equate Ultra Sunscreen 30+ and sun protecting hats/cloth ing Raised madi orrheic keratosis 6747359798 94160 L82.1 Reassuranc e Hemangioma 081947080 D18 .00 Reassuranc e Actinic keratosis [address] x 3 Inflamed s eborrheic keratosis 855978757 L82.0 LN x 15 Health Concerns Section Related Observation LastModified by Organization Detai ls LastModified Time None Recorded Concern Status LastModified by Organization Details LastModified Time None Recorded Advance Directives Directive None Recorded Payers Insurance Date Sequence Insurance Name Policy Number Policy Barry Covered Member ID Barry Member ID Guarantor Name 02/12/2024 1 [place] Laya Mitchell Homer [id number] Laya Mitchell Homer 02/09/2023 2 [facility] Laya Mitchell Homer [id number] Laya Mitchell Coronel 02/12/2024 2 [employer] (MEDICARE SUPPLEMENT) Laya Mitchell Homer [id number] Laya Mitchell Coronel 02/09/2023 1 [place] Laya Krishna Homer [id number] Laya Mitchell Homer 07/20/2022 SLIDING FEE SCHEDULE - DISCOUNT Laya Mitchell Coronel 02/09/2023 1 [place] [id number] Laya Krishna Homer [id number] Laya Mitchell Coronel 02/09/2023 1 [facility] [id number] Laya Krishna Homer [id number] Laya Mitchell Homer Notes Date Note Type Note Provider Name and Address Organization Details Recorded Time 02/10/2023 text/html New Patient - [facility] seen 2014 LOCATION: back/ faceDURATION: x yearsSYMPTOMS: roughTREATMENTS: none no issues with bleeding, scarring, or healing Denies any other new, changing, or bleeding lesions, or other rashes, feels well , good mood and has no family history of melanoma. PER QUILES MD [address] [place], [address], [facility] 02/10/2023 12:43:59 02/12/2024 text/html Established Patient [...] family history of melanoma. PER QUILES MD [facility] [place], [address], [facility] 02/12/2024 12:43:44 OBGyn Episode No OBEpisode recorded.
--- OUTSIDE RECORDS SUMMARY | 2025-01-21 07:53 | XMS_ITS | Data Portability ---
Author Organization [place] - [facility], [facility] Address [address] [place] [address] Assessment Encounter Date Assessment Date Assessment LastModified by Organization Details LastModified Time 12/28/2021 12/28/2021 This patient is well-known to me being previously treated in [place] for right-sided sacroiliitis. Her last right SI [...] positive Gabriel's test bilaterally. She has positive [place]'s test bilaterally. She has positive SI joint [...] Details Recorded Time Inflammation of sacroiliac joint [id number] Active 2021 Olivia armendariz, [place] - [facility] 2 09:08:45 Problem Notes None recorded. Procedures Surgical History Date Name Laterality Status Provider Name and Address Organization Details Recorded Time 3 Therapeutic SI Joint Injection Under Fluoroscopy completed Nikhil Fletcher MD [address], [address], [place] [facility] 04/01/2023 00:26:14 2 SI Joint Steroid Injection Under Fluoroscopy completed Nikhil Fletcher MD [address], [address], [place] [facility] 07/26/2022 10:19:52 2 SI Joint Steroid Injection Under Fluoroscopy completed Nikhil Fletcher MD [address], [address], [place] [facility] 12/28/2021 [...] Updated DateTime 3 165.1 cm 30 kg/m2 90658.6 3 g 72 /min 18 /min 72 /min 97 % 97 % 153 mm[Hg] 93 mm[Hg] Cherelle Ferraro [place] - [facility] 3 10:57:40 Social History Question Answer Notes LastModified by [employer] Details LastModified Time Tobacco Smoking Status Never Smoker JOSEPH MEDINA marcello, [place] - [facility] 03/27/2023 15:39:23 In The 14 Days Before Symptom Onset, Have You Had Close Contact With A Laboratory-confirm ed COVID-19 While That Case Was Ill? No Information n ot available 03/27/2023 In The 14 Days Before Symptom Onset, Have You Had Close Contact With A Person Who Is Under Investigation For COVID-19 While That Person Was Ill? No [email or web address] Information not available 03/27/2023 Have You Been To An Area Known To Be High Risk For COVID-19? No Information not available 03/27/2023 Sex: Unknown Functional Status Question Answer Note LastModified by [employer] Details LastModified Time Do you use any illicit or recreational drugs? No [email or web address] Information not available 03/27/2023 Do you or have you ever used any other forms of tobacco or nicotine? No [email or web address] Information not available 03/27/2023 What is your level of alcohol consumption? None [email or web address] Information not available 03/27/2023 Mental Status None recorded. Family History Nothing Reported. Medical History No medical history recorded. Gynecological HistoryNo gynecological history recorded. Obstetrics History GPAL:G 0 P 0 0 0 0 Past Encounters Encounter ID Performer Location Encounter Start Date Encounter Closed Date Diagnosis/Indication Diagnosis SNOMED-CT Code Diagnosis ICD10 Code Diagnosis Note [id number] Nikhil Fletcher MD [place] [facility] [address] [facility] [address] [place] [address] 12/28/2021 08:09:40 12/28/2021 09:04:12 Inflammation of sacroiliac joint 81886939 M46.1 [id number] Nikhil Fletcher MD [place] [facility] [address] [facility] [address] [place] [address] 07/26/2022 08:10:29 07/26/2022 09:29:34 Inflammation of sacroiliac joint 21769829 M46.1 [id number] Nikhil Fletcher MD [place] [facility] [address] [place] [address] 03/31/2023 10:07:11 03/31/2023 12:10:21 Inflammation of sacroiliac joint 62729696 M46.1 Health Concerns Section Related Observation LastModified by Organization Detai ls LastModified Time None Recorded Concern Status LastModified by Organization Details LastModified Time None Recorded Advance Directives Directive None Recorded Payers Encounter Date Sequence Insurance Name Policy Number Policy Barry Covered Member ID Barry Member ID Guarantor Name 12/28/2021 1 [employer] ([place] [id number] Laya Coronel [id number] Laya Coronel 07/26/2022 1 *SELF PAY* Am jj Coronel 03/31/2023 2 [facility] Laya Coronel [id number] Laya Coronel 03/31/2023 1 MEDICARE-[employer] (MEDICARE) Laya Coronel [id number] Laya Coronel Notes Date Note Type [...] celebrex when she really needs it Nikhil Bux, MD [address] [address], [place], [address], [place] - [facility] 04/01/2023 00:29:51 OBGyn Episode No OBEpisode recorded.
[2025-01-21 08:22] LABS: Blood Urea Nitrogen 8 mg/dl (7-17); Estimated Glomerular Filt Rate 83 ml/min (>60); GFR (African American) 101 ML/MIN (>60)
[2025-01-21] MEDS: SODIUM CHLORIDE 0.9% 10ML SYR (RAD ONLY) 10 ML IV (08:44)
[2025-01-21] MEDS: IOPAMIDOL-370 (76%);100ML BOTTLE 75 ML IV (08:44)
== END 2025-01-21 23:59 | disposition home or self-care (01) ==
LOC: RAD 07:52
PROVIDERS: PCP Family Medicine; Visit Provider Physician Assistant
DX: K43.9 Ventral hernia without obstruction or gangrene (principal); R93.89 Abnormal findings on diagnostic imaging of other specified body structures
CPT/HCPCS: 36415; 74177; 82565; 84520; Q9967